=== PATIENT | male | born 1965 | race Caucasian/White ===

== ENCOUNTER 2018-09-02 17:41 | Emergency (ER) | payer MEDICAID ==
[~2018-09-02] VITALS: Ht 172.7 cm; Wt 81.6 kg
[~2018-09-02 17:41] MED LIST: ALBUPOW26; PREDPOW63
[2018-09-02] MEDS ORDERED: methylPREDNISolone SOD SUCC 125 MG/2 ML VL IV ONE (18:45)
[2018-09-02] MEDS ORDERED: LEVOFLOXACIN 500MG 100 ML IV ONE (18:45)
[2018-09-02 19:23] LABS: Basophils # (auto) 0.1 uL; Basophils % (auto) 1.4 % (0.0-2.0); Eosinophils # (auto) 0.2 uL; Eosinophils % (auto) 2.8 % (0.0-7.0); Hematocrit 43.4 % (41.0-53.0); Hemoglobin 15.1 g/dL (13.5-17.5); Lymphocytes # (auto) 1.4 uL; Mean Corpuscular Hgb Conc. 34.8 g/dL (32.0-36.0); Monocytes # (auto) 0.9 uL; Monocytes % (auto) 11.8 % (0.0-12.0); Neutrophils # (auto) 5.1 uL; Nucleated Red Blood Cells % 0.3 %; Platelet Count (auto) 128 10^3/uL (140-450); Red Blood Cells 5.05 10^6/uL (4.5-5.90); White Blood Cell 7.8 10^3/uL (4.4-10.8)
[2018-09-02 19:40] LABS: Albumin 3.6 g/dL (3.4-5.0); Anion Gap 6 (5-15); Blood Urea Nitrogen 10 mg/dL (7-18); Calcium 8.2 mg/dL (8.5-10.1); Carbon Dioxide 23 mmol/L (21-32); Chloride 108 mmol/L (98-107); Glucose 105 mg/dL (74-106); Potassium 3.9 mmol/L (3.5-5.1); Sodium 137 mmol/L (136-145)
[2018-09-02 19:46] LABS: Alanine Aminotransferase 21 U/L (16-61); Alkaline Phosphatase 62 U/L (45-117); Aspartate Aminotransferase 14 U/L (15-37); BUN/Creatinine Ratio 7.5; Bilirubin, Total 0.7 mg/dL (0.2-1.0); GFR African American 72 mL/min; GFR Non-African American 60 mL/min; Total Protein 6.9 g/dL (6.4-8.2)
[2018-09-02 20:31] VITALS: BP 105/68
== END 2018-09-02 20:34 | disposition home or self-care (01) ==
LOC: EDSEX 17:41 → EDBD 17:41 → ER 17:46
DX: J20.9 Acute bronchitis, unspecified (principal); F12.10 Cannabis abuse, uncomplicated; J45.909 Unspecified asthma, uncomplicated; E78.5 Hyperlipidemia, unspecified; Z88.6 Allergy status to analgesic agent; Z88.0 Allergy status to penicillin; Z91.041 Radiographic dye allergy status
CPT/HCPCS: 36415; 71045; 80053; 83605; 83735; 83880; 84484; 85025; 87040; 87076; 87077; 87186; 93005; 94761